=== PATIENT | female | born 1965 | race Caucasian/White ===

== ENCOUNTER 2016-12-21 06:30 | Inpatient (IN) ==
[2016-12-15 12:22] LABS: Basophils # (Auto) 0 K/mcL (0.0-0.3); Basophils % (Auto) 0.3 % (0.0-2.0); Eosinophils # (Auto) 0.1 K/mcL (0.0-0.7); Eosinophils % (Auto) 1.8 % (0.0-7.0); Granulocytes % (Auto) 56.6 % (38.0-78.0); Lymphocytes # (Auto) 2.4 K/mcL (1.5-4.8); Lymphocytes % (Auto) 35.8 % (15.5-49.0); Mean Cell Volume 101.1 fL (80.0-100.0); Mean Corpuscular HGB Conc 33.2 g/dL (31.0-36.0); Mean Corpuscular Hemoglobin 33.6 pg (26.0-34.0); Monocytes # (Auto) 0.4 K/mcL (0.1-0.9); Monocytes % (Auto) 5.5 % (1.0-12.0); Platelet Count 169 K/mcL (140-440); RBC 4.47 M/mcL (4.00-5.20); Red Cell Distribution Width 14.7 % (11.5-14.5)
[2016-12-15 12:46] LABS: Blood Urea Nitrogen 8 mg/dl (6-20)
[2016-12-15 13:08] LABS: Appearance,Urine HAZY; Bacteria,Urine 0 /hpf (0); Bilirubin,Urine NEG (NEG); Color,Urine YELLOW; Glucose,Urine (UA) NEGATIVE (NEG); Leukocyte Esterase,Urine 250 /uL (NEG); Mucus,Urine MANY /hpf (0); Nitrate,Urine NEG (NEG); Protein,Urine NEG (NEG); Urine Blood 0.03 mg/dL (<0.03); Urine RBC 9 /hpf (0-1); Urine Squamous Epithelial Cell 4 /hpf (0-4); Urine Transitional Epi Cells < 1 /hpf (0-2); Urine WBC 8 /hpf (0-4)
[~2016-12-21 06:30] MED LIST: CELECOXIB 200 MG CAPSULE PO SCH; KETOROLAC 30 MG, ROPIVACAINE HCL/PF 49.5 ML, EPINEPHrine 0.5 MG, 0.9 % SODIUM CHLORIDE ... IJ ONE; PREGABALIN 150 MG CAPSULE PO SCH; ceFAZolin 1 GM VIAL IV SCH
[2016-12-21 08:09] LABS: Appearance,Urine CLEAR; Bacteria,Urine 0 /hpf (0); Bilirubin,Urine NEG (NEG); Color,Urine YELLOW; Glucose,Urine (UA) NEGATIVE (NEG); Leukocyte Esterase,Urine 25 /uL (NEG); Mucus,Urine FEW /hpf (0); Nitrate,Urine NEG (NEG); Protein,Urine NEG (NEG); Specific Gravity,Urine 1.018 (1.000-1.035); Urine Blood NEG mg/dL (<0.03); Urine Hyaline Cast 1 /lpf (0-2); Urine RBC 6 /hpf (0-1); Urine Squamous Epithelial Cell 1 /hpf (0-4); Urine Transitional Epi Cells < 1 /hpf (0-2); Urine WBC 2 /hpf (0-4)
[2016-12-21] MEDS ORDERED: KETOROLAC 30 MG, ROPIVACAINE HCL/PF 49.5 ML, EPINEPHrine 0.5 MG, 0.9 % SODIUM CHLORIDE ... IJ ONE (09:10)
[2016-12-21] MEDS ORDERED: oxyCODONE 10 MG TAB.ER.12H PO SCH (09:15)
[2016-12-21] MEDS ORDERED: PROPOFOL 200 MG/20 ML VIAL IV ONE (09:24)
[2016-12-21] MEDS ORDERED: MIDAZOLAM 5 MG/5 ML VIAL ONE (09:24)
[2016-12-21] MEDS ORDERED: GLYCOPYRROLATE 0.2 MG/ML VIAL IV ONE (09:24)
[2016-12-21] MEDS ORDERED: ONDANSETRON 4 MG/2 ML VIAL ONE (09:24)
[2016-12-21] MEDS ORDERED: LIDOCAINE HCL/PF 100 MG/5 ML SYRINGE IV ONE (09:24)
[2016-12-21] MEDS ORDERED: PHENYLEPHRINE 10 MG/ML VIAL ONE (09:24)
[2016-12-21] MEDS ORDERED: GENTAMICIN SULFATE 800 MG/20 ML VIAL IR ONE (10:17)
[2016-12-21] MEDS ORDERED: BENZOCAINE/MENTHOL 1 LOZENGE PO PRN ×2 (10:29→11:08)
[2016-12-21] MEDS ORDERED: METHOCARBAMOL 1,000 MG/10 ML VIAL IV PRN (10:29)
[2016-12-21] MEDS ORDERED: NICOTINE 14 MG PATCH TOPICAL PRN (10:29)
[2016-12-21] MEDS ORDERED: IPRATROPIUM/ALBUTEROL 3 ML AMPUL.NEB NEB PRN (10:29)
[2016-12-21] MEDS ORDERED: LORazepam 2 MG/ML VIAL IV PRN (10:29)
[2016-12-21] MEDS ORDERED: fentaNYL 100 MCG/2 ML VIAL IV PRN (10:29)
[2016-12-21] MEDS ORDERED: ONDANSETRON 4 MG/2 ML VIAL IV PRN ×2 (10:29→11:08)
[2016-12-21] MEDS ORDERED: MEPERIDINE 25 MG/ML SYRINGE IV PRN (10:29)
[2016-12-21] MEDS ORDERED: LACTATED RINGERS 1,000 ML IV SCH (10:30)
--- NOTE | 2016-12-21 11:07 | Brief Operative Note ---
Date of procedure: 12/21/16 Pre-op diagnosis: left knee djd Post-op diagnosis: same Procedure: left tka Grafts/Implants: Yes Anesthesia: GETA Findings: medial djd Complications: none Complications Description: 12/21/16 11:06 none Surgeon: David Connors Desk Representative: Vito Iyer Estimated blood loss (cc): 20 Tourniquet Time (Minutes): 50 Specimens Removed/Pathology: none sent Condition: stable Disposition: PACU
[2016-12-21] MEDS ORDERED: TRANEXAMIC ACID 1,000 MG/10 ML VIAL IV SCH (11:08)
[2016-12-21] MEDS ORDERED: ACETAMINOPHEN 325 MG TABLET PO PRN (11:08)
[2016-12-21] MEDS ORDERED: POLYETHYLENE GLYCOL 3350 17 GM PACKET PO PRN (11:08)
[2016-12-21] MEDS ORDERED: BISACODYL 10 MG SUPP.RECT PR PRN (11:08)
[2016-12-21] MEDS ORDERED: MAGNESIUM HYDROXIDE 30 ML ORAL.SUSP PO PRN (11:08)
[2016-12-21] MEDS ORDERED: FLEETS ADULT ENEMA PR PRN (11:08)
[2016-12-21] MEDS ORDERED: HYDROcodone/APAP 10/325MG TABLET PO PRN (11:08)
[2016-12-21] MEDS ORDERED: HYDROmorphone 2 MG/ML SYRINGE IV PRN (11:08)
[2016-12-21] MEDS ORDERED: ALBUTEROL SULFATE 1 PUFF INHALER INH PRN (11:14)
[2016-12-21] MEDS ORDERED: ONDANSETRON ODT 4 MG TABLET SL PRN (11:14)
[2016-12-21] MEDS ORDERED: NON FORMULARY MEDICATION 1 DOSE MISCELL (Aspirin/Acetaminophen/Caffeine [Excedrin Migraine PO PRN (11:14)
--- NOTE | 2016-12-21 11:22 | XRay Report ---
HISTORY: Reason for Exam:r/o FB FINDINGS: Patient has a well positioned total knee prosthesis. On the lateral view a well circumscribed crescent-shaped calcification is seen posterior to the joint. It measures 4 mm thickness and 2.8 cm in length. This was not present on the preoperative CT done on 12/15/16. This may be a cortical fragment off the distal femur. There is no other evidence of a fracture IMPRESSION: Moderate size bone fragment posterior to the joint Interpreted and Authenticated by: Paulo Tapia 12/21/16
[2016-12-21] MEDS: ACETAMINOPHEN 1,000 MG/100 ML BOTTLE IV SCH ×3 (11:45→23:46)
--- NOTE | 2016-12-21 12:44 | Operative Note ---
DATE OF OPERATION: 12/21/2016 PREOPERATIVE DIAGNOSIS: Left knee degenerative arthritis. POSTOPERATIVE DIAGNOSIS: Left knee degenerative arthritis. PROCEDURE: Left total knee arthroplasty. SURGEON: David Connors MD TRADE SHOW SPECIALIST: Vito Iyer PA-C ANESTHESIA: General LMA anesthesia. TOURNIQUET TIME: 50 minutes. IMPLANTS: Per nurse's note, which were both cemented posterior stabilized Amaya total knee arthroplasty, 9 mm poly. DESCRIPTION OF PROCEDURE: The patient confirmed the operative site. Preop antibiotics, tranexamic acid had been given. Once this was done, we then made a mid vastus approach through the [place] after confirming the operative site, mid vastus approach and mid vastus approach to the joint revealed severe arthritis in the medial compartment with bone on bone, some chondromalacia of the patellofemoral joint and laterally, intact ACL and PCL. We then proceeded with the robotic total knee arthroplasty. Two pins above and below were placed. The arrays were placed, center of hip rotation intra-articular pins were placed, 30 points on the femur and tibia were registered. Osteophytes were removed. We balanced balance the ligaments on the knee with the robot. Once repositioned to make the knee perfectly balanced, we then brought in the robot, made our distal femoral cut, posterior chamfer cuts anterior and posterior cuts were made with the robot. Once this was done, we made our tibial cut using the robot. Extra bone and bony cuts were removed and meniscus was removed. We preserved the PCL. We irrigated thoroughly and then checked for any osteophytes posteriorly. Once this was done, we then punched into place and set the rotation using the robotic green array just to register rotation. The tibial baseplate was size 3, covered nicely. This was punched into place with appropriate rotation. Once this was done, we irrigated thoroughly and then placed a poly liner and size 3 femur was placed. This tracked perfectly well, seemed to balance nicely with a 9 mm, 11 was trialed, but too tight. It gave us negative 4 degrees of extension. We irrigated thoroughly and cemented into place size 3 tibial baseplate and size 3 femur and a 9 mm poly after all cement had been removed. We prepared the patella measuring 23 mm in total thickness. This was cut to 14 mm and a 33 mm patellar button was positioned, a small chamfer cut laterally. We irrigated thoroughly. We kept the knee at 45 degrees. Once the cement was dry, excess cement was removed. We irrigated thoroughly and used the pulse lavage as well as the CarboJet to prepare the bone for the bony cemented interface. We then closed the mid vastus approach with #2 FiberWire and a #1 double-armed Maxon. We irrigated thoroughly and closed the skin with 2-0 Vicryl and adhesive closure i the skin layer. The patient tolerated this well. Tourniquet time 50 minutes. LUIS E:mariano Job ID: [id number] Doc ID: [id number] David Connors MD
[2016-12-21] MEDS: 0.9 % SODIUM CHLORIDE 10 ML SYRINGE IV SCH ×2 (13:13→22:11)
[2016-12-21] MEDS: KETOROLAC 15 MG/ML VIAL IV SCH ×2 (14:00→17:52)
[2016-12-21] MEDS: GABAPENTIN 100 MG CAPSULE PO SCH ×2 (14:49→20:32)
[2016-12-21] MEDS: DIAZEPAM 5 MG TABLET PO SCH ×2 (14:50→20:31)
[2016-12-21] MEDS: oxyCODONE HCL 5 MG TABLET PO PRN ×2 (16:56→22:09)
[2016-12-21] MEDS: ceFAZolin 1 GM VIAL IV SCH (16:56)
[2016-12-21] MEDS: 0.45 % SODIUM CHLORIDE 1,000 ML IV SCH ×2 (17:00→19:37)
[2016-12-21] MEDS: DOCUSATE SODIUM 100 MG CAPSULE PO SCH (20:30)
[2016-12-21] MEDS: ASPIRIN 325 MG ENTERIC COATED TABLET PO SCH (20:31)
[2016-12-21] MEDS: PROPRANOLOL 40 MG TABLET PO SCH (20:32)
[2016-12-21] MEDS: buPROPion 150 MG TAB.SR.12H PO SCH (20:32)
[2016-12-21] MEDS: oxyCODONE 20 MG TAB.ER.12H PO SCH (20:33)
[2016-12-21] MEDS ORDERED: NAPROXEN 500 MG PO SCH (21:00)
[2016-12-21] MEDS ORDERED: SENNOSIDES 1 TABLET PO SCH (21:00)
[2016-12-21] MEDS ORDERED: risperiDONE 0.25 MG TABLET PO SCH (21:00)
[2016-12-21] MEDS ORDERED: TEMAZEPAM 15 MG CAPSULE PO PRN (21:00)
[2016-12-21] MEDS: FLUTICASONE/SALMETEROL 250/50 INHALER #14 INH SCH (22:10)
[2016-12-21] MEDS: ALBUTEROL SULFATE 2.5 MG/3 ML NEBULIZER NEB SCH (22:19)
[2016-12-22] MEDS: KETOROLAC 15 MG/ML VIAL IV SCH ×3 (00:43→12:14)
[2016-12-22] MEDS: ceFAZolin 1 GM VIAL IV SCH (01:30)
[2016-12-22] MEDS: oxyCODONE HCL 5 MG TABLET PO PRN ×3 (01:58→11:45)
[2016-12-22] MEDS: 0.45 % SODIUM CHLORIDE 1,000 ML IV SCH ×2 (03:50→11:56)
[2016-12-22] MEDS: ACETAMINOPHEN 1,000 MG/100 ML BOTTLE IV SCH ×2 (05:11→05:19)
[2016-12-22] MEDS: 0.9 % SODIUM CHLORIDE 10 ML SYRINGE IV SCH ×2 (05:12→12:32)
--- NOTE | 2016-12-22 07:23 | Orthopedic Progress Note ---
Subjective Patient information: Note initiated : 12/22/16 at 7:22 am Service Date, if different from initiated Date: [] Patient: Kait Tapia 51 y/o F admitted on 12/21/16 for Robotic Left Total Knee Arthroplasty. Chief Complaint: [Pt is stable this morning on post operative day 1 without any significant concerns or complaints. Patients vital signs have remained stable. Patients dressing is dry and exhibits a grossly intact neurovascular and neuromotor exam. Patients 10 point ROS is otherwise negative. ] Objective Vital signs: Vital Signs Temp Pulse Pulse Resp BP BP Pulse Ox 12/22/16 07:03 65 97 12/22/16 03:31 97.6 F 65 14 95/59 96 12/21/16 23:20 97.6 F 60 14 107/62 95 12/21/16 20:00 98.2 F 52 L 14 95/60 95 12/21/16 15:06 97.4 F L 54 L 16 110/67 94 12/21/16 14:59 94 12/21/16 13:59 97.1 F L 66 116/69 92 12/21/16 13:21 62 132/82 97 12/21/16 13:05 47 L 125/80 93 12/21/16 12:52 49 L 131/79 96 12/21/16 12:36 54 L 16 121/76 94 12/21/16 12:20 95.9 F L 60 14 114/74 91 12/21/16 12:07 98.4 F 55 L 15 122/85 92 12/21/16 12:00 58 L 16 118/77 95 12/21/16 11:45 68 16 115/79 95 12/21/16 11:27 97.7 F 72 16 92/57 95 Intake and Output 12/21/16 12/22/16 12/22/16 21:59 05:59 13:59 Intake Total 580 / 580 1180 / 1180 1000 / 1000 Output Total 610 / 610 1100 / 1100 Balance -30 / -30 80 / 80 1000 / 1000 Intake: IV 100 / 100 100 / 100 1000 / 1000 Sodium Chloride 0.45% 1, 1000 / 1000 000 ml @ 125 mls/hr IV . Q8H [facility] Rx#:[id number] Oral 480 / 480 1080 / 1080 Output: Void Amount 610 / 610 1100 / 1100 Other: Meal Dinner Percent of Meal Consumed 100% Weight 178 lb 8 oz Intake & Output: Intake & Output 12/21/16 12/22/16 12/22/16 21:59 05:59 13:59 Intake Total 580 / 580 1180 / 1180 1000 / 1000 Output Total 610 / 610 1100 / 1100 Balance -30 / -30 80 / 80 1000 / 1000 Weight 178 lb 8 oz Intake: IV 100 / 100 100 / 100 1000 / 1000 Sodium Chloride 0.45% 1, 1000 / 1000 000 ml @ 125 mls/hr IV . Q8H [facility] Rx#:[id number] Oral 480 / 480 1080 / 1080 Output: Void Amount 610 / 610 1100 / 1100 Other: Meal Dinner Percent of Meal Consumed 100% Incision: Yes healing Incision clean and dry: Yes Dressing: Yes clean, Yes dry Weight bearing status: full Neurological exam IM: Yes motor sensory intact, Yes neurovascular intact Extremities exam IM: Yes Foot pink and warm, Yes neurovascular intact - Labs CBC & BMP: 12/22/16 04:00 12/15/16 09:53 Labs: Orthopedic Labs 12/15/16 09:53 PT 13.6 INR 1.0 12/22/16 12/15/16 04:00 09:53 Hgb 15.0 Hct 36.4 45.2 Assessment and Plan (1) Hx of total knee arthroplasty Patient has been educated regarding wound care and dressings, follow up recommendations, and medication use. We will f/u with the patient within 2-3 weeks for wound check. Status: Acute
--- NOTE | 2016-12-22 07:26 | Discharge Summary ---
Ortho Discharge - TKA - Patient Instructions Diet: Regular Diet Activity: activity as tolerated, weight bearing as tolerated Total Knee Protocol: For Total Knee: Start ROM JOSE with stationary bike or rocking chair. Work on gaining full extension of knee. Posterior dislocation precautions provided. Hip abductor strengthening and gait training instructions provided. Apply Cryocuff as instructed. Dressing Care: May shower in 2 days Patient Education: Total Knee Replacement (DC) Additional Instructions: CPM for home use. - Problem Maintenance (1) Hx of total knee arthroplasty Status: Acute - Follow Up Plan Follow Up Appointments: David Connors MD [Physician] - 01/05/17 1:20 pm (You will be seeing Dr Connors or Vito Angel) Disposition: Home, Self-Care Prognosis: Good Rehab Potential: Good I certify that the patient requires SNF services: No Overall status at discharge: patient is progressing back to baseline - Orders For Discharge Prescriptions: Aspirin [Ecotrin] 325 mg PO BID #60 tab.ec Docusate Sodium [Colace] 100 mg PO BID #60 capsule oxyCODONE [Oxycontin] 20 mg PO BID #20 tab.er.12h oxyCODONE HCL [Roxicodone] 5 mg PO Q4-6HP PRN #75 tablet PRN Reason: Pain
[2016-12-22] MEDS ORDERED: PANTOPRAZOLE 40 MG TABLET PO SCH (07:30)
[2016-12-22] MEDS ORDERED: POTASSIUM CHLORIDE 20 MEQ TABLET PO SCH (08:00)
[2016-12-22] MEDS ORDERED: FUROSEMIDE 20 MG TABLET PO SCH (09:00)
[2016-12-22] MEDS ORDERED: CETIRIZINE 10 MG TABLET PO SCH (09:00)
[2016-12-22] MEDS ORDERED: VERAPAMIL 120 MG TAB.XL.24H PO SCH (09:00)
[2016-12-22] MEDS ORDERED: IPRATROPIUM BROMIDE 1 PUFF INHALER INH SCH (09:00)
[2016-12-22] MEDS ORDERED: ATORVASTATIN 20 MG TABLET PO SCH (09:00)
[2016-12-22] MEDS ORDERED: MELOXICAM 7.5 MG TABLET PO SCH (09:00)
[2016-12-22] MEDS ORDERED: NON FORMULARY MEDICATION 1 DOSE MISCELL (Aspirin [Adult Low Dose Aspirin Ec] 81 MG) PO SCH (09:00)
[2016-12-22] MEDS: FLUTICASONE/SALMETEROL 250/50 INHALER #14 INH SCH (09:45)
[2016-12-22] MEDS: ALBUTEROL SULFATE 2.5 MG/3 ML NEBULIZER NEB SCH (09:46)
[2016-12-22] MEDS: DOCUSATE SODIUM 100 MG CAPSULE PO SCH (09:53)
[2016-12-22] MEDS: GABAPENTIN 100 MG CAPSULE PO SCH ×2 (09:53→14:38)
[2016-12-22] MEDS: oxyCODONE 20 MG TAB.ER.12H PO SCH (09:54)
[2016-12-22] MEDS: ASPIRIN 325 MG ENTERIC COATED TABLET PO SCH (09:54)
[2016-12-22] MEDS: DIAZEPAM 5 MG TABLET PO SCH ×2 (09:54→14:38)
[2016-12-22] MEDS: buPROPion 150 MG TAB.SR.12H PO SCH (09:54)
[2016-12-22] MEDS: PROPRANOLOL 40 MG TABLET PO SCH (10:00)
== END 2016-12-22 16:15 | disposition home or self-care (01) ==
LOC: MEDSUR 06:30
PROVIDERS: ADMIT Orthopaedic Surgery; ATTEND Orthopaedic Surgery